=== PATIENT | female | born 1985 | race African-American/Black ===

== ENCOUNTER 2017-09-15 11:00 | Inpatient (IN) | payer MEDICAID ==
[~2017-09-15] VITALS: Ht 154.9 cm; Wt 51.7 kg
[~2017-09-15 11:00] MED LIST: CALC0.253 PO; CALC667C4 PO; HYDR-523 PO; HYDR200T35 PO; LABE100T PO; LEVE500T19 PO; LOSA100T14 PO; PRED5TAB PO; RENAVITE PO
[2017-09-15 11:57] LABS: BASOPHILS % 1.3 % (0.0-2.0); EOSINOPHILS % 0.3 % (0.0-5.0); HEMATOCRIT. 38.6 % (36.0-48.0); HEMOGLOBIN. 11.9 g/dL (12.0-16.0); LYMPHOCYTES % 33.6 % (20.0-50.0); MEAN CORPUSCULAR HEMOGLOBIN 25.4 pg (28.0-32.0); MEAN CORPUSCULAR VOLUME 81.9 fL (81.0-99.0); MEAN PLATELET VOLUME 9.9 fl (7.4-10.4); MONOCYTES % 11.2 % (2.0-8.0); NEUTROPHILS % 53.6 % (40.0-76.0); PLATELET 171 x1000/uL (130-400); RED BLOOD CELL COUNT 4.71 mill/uL (4.2-5.4); RED CELL DISTRIBUTION WIDTH 20.4 % (11.6-14.6)
[2017-09-15 12:05] LABS: CHLORIDE 95 mEq/L (98-107)
[2017-09-15 12:20] LABS: INR 1.2; PROTHROMBIN TIME 12.6 sec (9.4-11.6)
[2017-09-15 12:35] LABS: HCG SCREEN INDETERMINATE
[2017-09-15] MEDS ORDERED: POTASSIUM CHLORIDE 20MEQ TABLET SR PO ONE (12:45)
[2017-09-15] MEDS ORDERED: SODIUM CHLORIDE 0.9% 1,000 ML IV ONE (13:11)
[2017-09-15] MEDS ORDERED: ONDANSETRON HCL 4MG/2ML VIAL IV STA (13:11)
[2017-09-15] MEDS ORDERED: KCL 10MEQ/50ML PREMIX 50 ML IV ONE (13:15)
[2017-09-15] MEDS ORDERED: MAGNESIUM 2 G PREMIX 50 ML IV ONE (15:00)
[2017-09-15] MEDS ORDERED: FOLI0.8T42 PO (20:47)
[2017-09-15 20:53] VITALS: BP 100/72
[2017-09-15 21:00] VITALS: BP 100/72
[2017-09-15] MEDS: LABETALOL HCL 100MG TABLET PO SCH (22:30)
[2017-09-15] MEDS ORDERED: ONDANSETRON HCL 4MG/2ML VIAL IV PRN (22:30)
[2017-09-15] MEDS ORDERED: ACETAMINOPHEN 325MG TABLET PO PRN (22:30)
[2017-09-15] MEDS ORDERED: IPRATROPIUM/ALBUTEROL 0.5-3(2.5)MG/3ML NEB HHN PRN (22:45)
[2017-09-16 00:09] VITALS: BP 104/68
[2017-09-16 04:00] VITALS: BP 98/59
[2017-09-16 07:25] LABS: HEMATOCRIT. 30.6 % (36.0-48.0); HEMOGLOBIN. 9.2 g/dL (12.0-16.0); MEAN CORPUSCULAR HEMOGLOBIN 24.7 pg (28.0-32.0); MEAN PLATELET VOLUME 11.3 fl (7.4-10.4); PLATELET 104 x1000/uL (130-400); RED BLOOD CELL COUNT 3.73 mill/uL (4.2-5.4)
[2017-09-16 08:00] VITALS: BP 94/64
[2017-09-16] MEDS: CALCIUM ACETATE 667MG CAPSULE PO SCH ×4 (08:10→18:10)
[2017-09-16 08:16] LABS: NUCLEATED RED BLOOD CELLS 5 /100 WBC
[2017-09-16 08:17] LABS: PLATELET ESTIMATE SLIGHTLY DECREASED
[2017-09-16] MEDS: HYDROXYCHLOROQUINE SULFATE 200MG TABLET PO SCH ×2 (08:41→18:13)
[2017-09-16] MEDS: PREDNISONE 5MG TABLET PO SCH (08:41)
[2017-09-16] MEDS: FOLIC ACID/VITAMIN B COMP W-C TABLET PO SCH (08:41)
[2017-09-16] MEDS: LEVETIRACETAM 500MG TABLET PO SCH ×3 (08:41→17:00)
[2017-09-16] MEDS: LABETALOL HCL 100MG TABLET PO SCH ×2 (08:42→20:37)
[2017-09-16] MEDS: LOSARTAN POTASSIUM 100 MG TABLET PO SCH (08:42)
[2017-09-16] MEDS ORDERED: POTASSIUM CHLORIDE 20MEQ TABLET SR PO NR ×2 (10:00→21:30)
[2017-09-16 12:00] VITALS: BP 95/68
[2017-09-16 16:00] VITALS: BP 96/57
[2017-09-16] MEDS ORDERED: POTASSIUM CHLORIDE 20MEQ/PACKET PO NR (18:30)
[2017-09-16 20:00] VITALS: BP 91/63
[2017-09-16] MEDS ORDERED: KCL 20MEQ/100ML PREMIX 100 ML IV NR (20:00)
[2017-09-17] VITALS: BP 98/60
[2017-09-17 04:00] VITALS: BP 92/66
[2017-09-17 07:16] LABS: HEMATOCRIT. 30.9 % (36.0-48.0); HEMOGLOBIN. 9.6 g/dL (12.0-16.0); MEAN CORPUSCULAR HEMOGLOBIN 25.1 pg (28.0-32.0); MEAN CORPUSCULAR VOLUME 81.1 fL (81.0-99.0); MEAN PLATELET VOLUME 11.3 fl (7.4-10.4); PLATELET 87 x1000/uL (130-400); RED BLOOD CELL COUNT 3.81 mill/uL (4.2-5.4); RED CELL DISTRIBUTION WIDTH 20.4 % (11.6-14.6)
[2017-09-17 07:46] LABS: PHOSPHORUS 2.9 mg/dL (2.5-4.9)
[2017-09-17 08:00] VITALS: BP 98/71
[2017-09-17] MEDS: CALCIUM ACETATE 667MG CAPSULE PO SCH ×3 (08:10→17:12)
[2017-09-17] MEDS: LABETALOL HCL 100MG TABLET PO SCH ×2 (08:32→20:08)
[2017-09-17] MEDS: LEVETIRACETAM 500MG TABLET PO SCH ×2 (09:00→16:07)
[2017-09-17] MEDS: LOSARTAN POTASSIUM 100 MG TABLET PO SCH (09:00)
[2017-09-17] MEDS ORDERED: POTASSIUM CHLORIDE 20MEQ/PACKET PO SCH (09:00)
[2017-09-17] MEDS ORDERED: CALCITRIOL 0.25MCG CAPSULE PO SCH (09:00)
[2017-09-17] MEDS: FOLIC ACID/VITAMIN B COMP W-C TABLET PO SCH (09:22)
[2017-09-17] MEDS: POTASSIUM CHLORIDE 20MEQ TABLET SR PO SCH (09:22)
[2017-09-17] MEDS: PREDNISONE 5MG TABLET PO SCH (09:22)
[2017-09-17] MEDS: HYDROXYCHLOROQUINE SULFATE 200MG TABLET PO SCH ×2 (09:33→17:08)
[2017-09-17 12:00] VITALS: BP 99/70
[2017-09-17 14:26] LABS: NUCLEATED RED BLOOD CELLS 17 /100 WBC
[2017-09-17 14:28] LABS: PLATELET ESTIMATE DECREASED
[2017-09-17 16:00] VITALS: BP 97/62
[2017-09-17] MEDS ORDERED: ONDANSETRON HCL 4MG/2ML VIAL IV PRN (17:00)
[2017-09-17 20:00] VITALS: BP 92/66
[2017-09-18] VITALS: BP 94/65
[2017-09-18 04:00] VITALS: BP 92/56
[2017-09-18 08:00] VITALS: BP 90/56
[2017-09-18 08:39] LABS: HEMATOCRIT. 28.3 % (36.0-48.0); HEMOGLOBIN. 8.7 g/dL (12.0-16.0); MEAN CORPUSCULAR HEMOGLOBIN 24.7 pg (28.0-32.0); MEAN CORPUSCULAR VOLUME 80.3 fL (81.0-99.0); MEAN PLATELET VOLUME 10.6 fl (7.4-10.4); PLATELET 94 x1000/uL (130-400); RED BLOOD CELL COUNT 3.53 mill/uL (4.2-5.4); RED CELL DISTRIBUTION WIDTH 20.5 % (11.6-14.6)
[2017-09-18 08:52] LABS: PHOSPHORUS 2.4 mg/dL (2.5-4.9)
[2017-09-18] MEDS: PREDNISONE 5MG TABLET PO SCH (08:55)
[2017-09-18] MEDS: LEVETIRACETAM 500MG TABLET PO SCH ×2 (08:55→09:00)
[2017-09-18] MEDS: HYDROXYCHLOROQUINE SULFATE 200MG TABLET PO SCH (08:55)
[2017-09-18] MEDS: POTASSIUM CHLORIDE 20MEQ TABLET SR PO SCH (08:55)
[2017-09-18] MEDS: FOLIC ACID/VITAMIN B COMP W-C TABLET PO SCH (08:55)
[2017-09-18] MEDS: CALCIUM ACETATE 667MG CAPSULE PO SCH ×2 (08:55→13:10)
[2017-09-18] MEDS: LABETALOL HCL 100MG TABLET PO SCH (08:56)
[2017-09-18] MEDS: LOSARTAN POTASSIUM 100 MG TABLET PO SCH (08:56)
[2017-09-18] MEDS ORDERED: FOLIC ACID/VITAMIN B COMP W-C TABLET PO SCH (09:00)
[2017-09-18 12:00] VITALS: BP 97/58
[2017-09-18] MEDS ORDERED: POTASSIUM CHLORIDE 20MEQ TABLET SR PO NR (14:00)
[2017-09-18 16:00] VITALS: BP 90/57
[2017-09-18 17:30] LABS: PLATELET ESTIMATE DECREASED
[2017-09-18] MEDS ORDERED: CALCIUM CARBONATE 500MG TABLET CHEW PO SCH (18:10)
== END 2017-09-18 17:00 | disposition home or self-care (01) | DRG 720 ==
LOC: ER 11:00 → 7WST 15:58 → EDBEDREQTM 16:04 → EDBEDREQ 16:04 → ENRESERV 19:23
PROVIDERS: ADMIT Internal Medicine; ATTEND Internal Medicine
PROC: 3E1M39Z Irrigation of Peritoneal Cavity using Dialysate, Percutaneous Approach (ICD-10-PCS; principal; 2017-09-16)
DX: A41.9 Sepsis, unspecified organism (principal); E43 Unspecified severe protein-calorie malnutrition; N18.6 End stage renal disease; I12.0 Hypertensive chronic kidney disease with stage 5 chronic kidney disease or end stage renal disease; D69.6 Thrombocytopenia, unspecified; M32.9 Systemic lupus erythematosus, unspecified; E83.42 Hypomagnesemia; E87.6 Hypokalemia; G40.909 Epilepsy, unspecified, not intractable, without status epilepticus; E03.9 Hypothyroidism, unspecified; J45.909 Unspecified asthma, uncomplicated; D64.9 Anemia, unspecified; G89.4 Chronic pain syndrome; Z88.0 Allergy status to penicillin; Z79.899 Other long term (current) drug therapy; Z87.440 Personal history of urinary (tract) infections; Z99.2 Dependence on renal dialysis; Z68.21 Body mass index [BMI] 21.0-21.9, adult
CPT/HCPCS: 36415; 71045; 80048; 80053; 82270; 83735; 84100; 84145; 84484; 84702; 84703; 85025; 85610; 87015; 87045; 87070; 87205; 87427; 87449; 87493; 89050; 89055; 93005; 96365; 96375; 99285; J2405; J3475; J3480; J7030; J7050; J7512

== ENCOUNTER 2018-02-24 15:19 | Inpatient (IN) | payer MEDICAID ==
[~2018-02-24] VITALS: Ht 154.9 cm; Wt 44.9 kg
[~2018-02-24 15:19] MED LIST changes: +FOLI0.8T42 PO; -LABE100T PO; +LABE100T5 PO; -RENAVITE PO
[2018-02-24] MEDS ORDERED: SODIUM CHLORIDE 0.9% 1,000 ML IV ONE (18:33)
[2018-02-24] MEDS ORDERED: ONDANSETRON HCL 4MG/2ML INJ IV STA (18:33)
[2018-02-24] MEDS ORDERED: SODIUM CHLORIDE 0.9% 250 ML IV ONE (18:45)
[2018-02-24 19:36] LABS: CHLORIDE 94 mEq/L (98-107)
[2018-02-24 19:37] LABS: HEMATOCRIT. 47.9 % (36.0-48.0); HEMOGLOBIN. 14.7 g/dL (12.0-16.0); MEAN CORPUSCULAR HEMOGLOBIN 26.5 pg (28.0-32.0); MEAN CORPUSCULAR VOLUME 86.1 fL (81.0-99.0); MEAN PLATELET VOLUME 8.9 fl (7.4-10.4); PLATELET 290 x1000/uL (130-400); RED BLOOD CELL COUNT 5.56 mill/uL (4.2-5.4); RED CELL DISTRIBUTION WIDTH 21.7 % (11.6-14.6)
[2018-02-24] MEDS ORDERED: POTASSIUM CHLORIDE INJ 40 MEQ in DEXT 5% WATER 250 ML IV NR (20:20)
[2018-02-24 20:24] LABS: NUCLEATED RED BLOOD CELLS 4 /100 WBC; PLATELET ESTIMATE NORMAL
[2018-02-24 20:51] LABS: PHOSPHORUS 7.1 mg/dL (2.5-4.9)
[2018-02-24] MEDS ORDERED: HYDROCORTISONE SOD SUCCINATE 100 MG/2 ML VIAL IV ONE (21:00)
[2018-02-24] MEDS ORDERED: ACETAMINOPHEN 325MG TABLET PO PRN (21:15)
[2018-02-24] MEDS ORDERED: IPRATROPIUM/ALBUTEROL 0.5-3(2.5)MG/3ML NEB INH PRN (21:15)
[2018-02-24] MEDS ORDERED: NITROGLYCERIN 0.4MG TABLET SL SL PRN (21:15)
[2018-02-24] MEDS ORDERED: GUAIFENESIN 200MG/10ML SUGAR FREE UDC PO PRN (21:15)
[2018-02-24] MEDS ORDERED: DOCUSATE SODIUM 100MG CAPSULE PO PRN (21:15)
[2018-02-24] MEDS ORDERED: MAGNESIUM/ALUMINUM HYDROXIDE/SIMETHICONE 30ML UDC PO PRN (21:15)
[2018-02-24] MEDS ORDERED: DIPHENHYDRAMINE 50MG/ML VIAL IV PRN (21:15)
[2018-02-24] MEDS ORDERED: CLONIDINE 0.1MG TABLET PO PRN (21:15)
[2018-02-24 22:45] VITALS: BP 99/69
[2018-02-25] MEDS ORDERED: POTASSIUM CHLORIDE 20MEQ TABLET SR PO SCH (00:09)
[2018-02-25] MEDS ORDERED: ZOLPIDEM TARTRATE 5MG TABLET PO PRN (00:09)
[2018-02-25] MEDS: ONDANSETRON HCL 4MG/2ML INJ IV PRN ×3 (00:13→21:41)
[2018-02-25] MEDS ORDERED: NA PHOS,M-B/NA PHOS,DI-BA ENEMA 118ML PR PRN (00:51)
[2018-02-25 01:25] LABS: CREATINE KINASE MB FRACTION 1.3 ng/mL (0.5-3.6)
[2018-02-25] MEDS ORDERED: MAGNESIUM 1 G PREMIX 100 ML IV SCH (02:00)
[2018-02-25 04:00] VITALS: BP 96/58
[2018-02-25 06:51] LABS: CREATINE KINASE MB FRACTION 1.2 ng/mL (0.5-3.6)
[2018-02-25] MEDS ORDERED: EPOE40002 IJ (07:51)
[2018-02-25 08:00] VITALS: BP 90/58
[2018-02-25] MEDS: LEVETIRACETAM 500MG TABLET PO SCH ×2 (09:00→20:38)
[2018-02-25] MEDS: PANTOPRAZOLE SODIUM 40 MG/VIAL IV SCH (09:15)
[2018-02-25] MEDS: SUCRALFATE 1 G/10 ML UDC PO SCH ×4 (09:15→20:38)
[2018-02-25] MEDS: METOCLOPRAMIDE 10MG/10 ML UDC PO SCH ×3 (09:15→18:04)
[2018-02-25] MEDS: POTASSIUM CHLORIDE 20MEQ TABLET SR PO SCH (09:16)
[2018-02-25] MEDS: HYDROXYCHLOROQUINE SULFATE 200MG TABLET PO SCH (09:16)
[2018-02-25] MEDS: PREDNISONE 5MG TABLET PO SCH (09:16)
[2018-02-25] MEDS: SEVELAMER CARBONATE 800 MG TABLET PO SCH ×3 (09:16→18:05)
[2018-02-25 11:31] LABS: HEMATOCRIT. 49.2 % (36.0-48.0); HEMOGLOBIN. 14.8 g/dL (12.0-16.0); MEAN CORPUSCULAR VOLUME 89.4 fL (81.0-99.0); MEAN PLATELET VOLUME 9.1 fl (7.4-10.4); PLATELET 249 x1000/uL (130-400); RED CELL DISTRIBUTION WIDTH 21.6 % (11.6-14.6)
[2018-02-25 11:44] LABS: CHLORIDE 99 mEq/L (98-107)
[2018-02-25 12:00] VITALS: BP 106/72
[2018-02-25 16:00] VITALS: BP 97/69
[2018-02-25 17:30] LABS: NUCLEATED RED BLOOD CELLS 3 /100 WBC; PLATELET ESTIMATE NORMAL
[2018-02-25 19:15] LABS: HCG SCREEN NEGATIVE
[2018-02-25 20:00] VITALS: BP 92/64
[2018-02-26] VITALS: BP 103/63
[2018-02-26 04:00] VITALS: BP 105/61
[2018-02-26 07:22] LABS: HEMATOCRIT. 38.8 % (36.0-48.0); HEMOGLOBIN. 12.1 g/dL (12.0-16.0); MEAN CORPUSCULAR HEMOGLOBIN 26.8 pg (28.0-32.0); MEAN CORPUSCULAR VOLUME 85.9 fL (81.0-99.0); MEAN PLATELET VOLUME 9.1 fl (7.4-10.4); PLATELET 220 x1000/uL (130-400); RED BLOOD CELL COUNT 4.52 mill/uL (4.2-5.4); RED CELL DISTRIBUTION WIDTH 21.1 % (11.6-14.6)
[2018-02-26 07:59] VITALS: BP 92/63
[2018-02-26 08:18] LABS: PHOSPHORUS 5.6 mg/dL (2.5-4.9)
[2018-02-26] MEDS: SEVELAMER CARBONATE 800 MG TABLET PO SCH ×3 (08:27→16:49)
[2018-02-26] MEDS: LEVETIRACETAM 500MG TABLET PO SCH ×2 (08:28→20:51)
[2018-02-26] MEDS: HYDROXYCHLOROQUINE SULFATE 200MG TABLET PO SCH (08:28)
[2018-02-26] MEDS: ALLOPURINOL 100 MG TABLET PO SCH (08:28)
[2018-02-26] MEDS: PANTOPRAZOLE SODIUM 40 MG/VIAL IV SCH (08:29)
[2018-02-26] MEDS: SUCRALFATE 1 G/10 ML UDC PO SCH ×4 (08:29→20:50)
[2018-02-26] MEDS: POTASSIUM CHLORIDE 20MEQ TABLET SR PO SCH ×2 (08:29→16:39)
[2018-02-26] MEDS: METOCLOPRAMIDE 10MG/10 ML UDC PO SCH ×3 (08:29→16:49)
[2018-02-26] MEDS: CHOLECALCIFEROL (D3) 1000 UNIT TABLET PO SCH (08:29)
[2018-02-26] MEDS: PREDNISONE 5MG TABLET PO SCH (08:29)
[2018-02-26] MEDS: ONDANSETRON HCL 4MG/2ML INJ IV PRN ×2 (08:39→16:40)
[2018-02-26] MEDS ORDERED: KCL 20MEQ/100ML PREMIX 100 ML IV SCH (11:30)
[2018-02-26 11:34] VITALS: BP 90/62
[2018-02-26 15:39] VITALS: BP 89/60
[2018-02-26 17:45] LABS: NUCLEATED RED BLOOD CELLS 8 /100 WBC
[2018-02-26 17:46] LABS: PLATELET ESTIMATE NORMAL
[2018-02-26 20:00] VITALS: BP 94/61
[2018-02-27] VITALS: BP 98/66
[2018-02-27 04:00] VITALS: BP 105/73
[2018-02-27 08:00] VITALS: BP 96/66
[2018-02-27] MEDS: SEVELAMER CARBONATE 800 MG TABLET PO SCH ×2 (08:48→13:07)
[2018-02-27] MEDS: LEVETIRACETAM 500MG TABLET PO SCH (08:49)
[2018-02-27] MEDS: METOCLOPRAMIDE 10MG/10 ML UDC PO SCH ×2 (08:49→13:06)
[2018-02-27] MEDS: SUCRALFATE 1 G/10 ML UDC PO SCH ×2 (08:49→13:06)
[2018-02-27] MEDS: PREDNISONE 5MG TABLET PO SCH (08:49)
[2018-02-27] MEDS: HYDROXYCHLOROQUINE SULFATE 200MG TABLET PO SCH (08:49)
[2018-02-27] MEDS: ALLOPURINOL 100 MG TABLET PO SCH (08:49)
[2018-02-27] MEDS: POTASSIUM CHLORIDE 20MEQ TABLET SR PO SCH (08:50)
[2018-02-27] MEDS: CHOLECALCIFEROL (D3) 1000 UNIT TABLET PO SCH (08:50)
[2018-02-27] MEDS ORDERED: FAMOTIDINE 20MG TABLET PO SCH (09:00)
[2018-02-27 12:06] VITALS: BP 96/66
[2018-02-27 12:11] VITALS: BP 98/59
[2018-02-27 12:13] VITALS: BP 98/59
== END 2018-02-27 15:13 | disposition home or self-care (01) | DRG 241 ==
LOC: ER 19:44 → 7WST 20:55 → EDBEDREQ 21:03 → EDBEDREQTM 21:03 → ENRESERV 21:24
PROVIDERS: ADMIT Internal Medicine; ATTEND Internal Medicine
PROC: 3E1M39Z Irrigation of Peritoneal Cavity using Dialysate, Percutaneous Approach (ICD-10-PCS; principal; 2018-02-25)
DX: K29.70 Gastritis, unspecified, without bleeding (principal); E43 Unspecified severe protein-calorie malnutrition; M32.9 Systemic lupus erythematosus, unspecified; E11.43 Type 2 diabetes mellitus with diabetic autonomic (poly)neuropathy; K31.84 Gastroparesis; E83.42 Hypomagnesemia; E83.39 Other disorders of phosphorus metabolism; I12.0 Hypertensive chronic kidney disease with stage 5 chronic kidney disease or end stage renal disease; K27.9 Peptic ulcer, site unspecified, unspecified as acute or chronic, without hemorrhage or perforation; N18.6 End stage renal disease; E83.51 Hypocalcemia; E87.6 Hypokalemia; E03.9 Hypothyroidism, unspecified; E86.0 Dehydration; G40.909 Epilepsy, unspecified, not intractable, without status epilepticus; D72.829 Elevated white blood cell count, unspecified; J45.909 Unspecified asthma, uncomplicated; Z53.8 Procedure and treatment not carried out for other reasons; Z86.72 Personal history of thrombophlebitis; Z99.2 Dependence on renal dialysis; Z87.440 Personal history of urinary (tract) infections; Z88.0 Allergy status to penicillin; Z79.899 Other long term (current) drug therapy; Z79.52 Long term (current) use of systemic steroids; Z68.1 Body mass index [BMI] 19.9 or less, adult
CPT/HCPCS: 36415; 71045; 80048; 80053; 80061; 82550; 82553; 83036; 83690; 83735; 84100; 84484; 84703; 85025; 93970; 96361; 96365; 96375; 99285; C1893; C9113; J1720; J2405; J3475; J3480; J7030; J7060; J7512; J8597

== ENCOUNTER 2018-03-06 17:07 | Inpatient (IN) | payer MEDICAID ==
[~2018-03-06] VITALS: Ht 154.9 cm; Wt 49.9 kg
[~2018-03-06 17:07] MED LIST changes: +EPOE40002 IJ
[2018-03-06] MEDS ORDERED: ONDANSETRON HCL 4MG/2ML INJ IV STA (17:58)
[2018-03-06] MEDS ORDERED: SODIUM CHLORIDE 0.9% 1,000 ML IV ONE (17:58)
[2018-03-06 18:44] LABS: BASOPHILS % 0.6 % (0.0-2.0); EOSINOPHILS % 0.2 % (0.0-5.0); HEMATOCRIT. 46.7 % (36.0-48.0); HEMOGLOBIN. 14.1 g/dL (12.0-16.0); MEAN CORPUSCULAR HEMOGLOBIN 25.8 pg (28.0-32.0); MEAN CORPUSCULAR VOLUME 85.4 fL (81.0-99.0); MEAN PLATELET VOLUME 9.5 fl (7.4-10.4); MONOCYTES % 7.7 % (2.0-8.0); NEUTROPHILS % 67.5 % (40.0-76.0); PLATELET 264 x1000/uL (130-400); RED BLOOD CELL COUNT 5.46 mill/uL (4.2-5.4); RED CELL DISTRIBUTION WIDTH 21.6 % (11.6-14.6)
[2018-03-06 18:49] LABS: CHLORIDE 97 mEq/L (98-107); INR 1.3; PROTHROMBIN TIME 12.7 sec (9.1-11.1)
[2018-03-06] MEDS ORDERED: KCL 20MEQ/100ML PREMIX 100 ML IV ONE (19:15)
[2018-03-06] MEDS ORDERED: KETOROLAC 30MG/ML VIAL IV ONE (20:15)
[2018-03-07 00:28] VITALS: BP 105/75
[2018-03-07] MEDS: MORPHINE SULFATE 4 MG/ML CPJ (NOT FOR IM USE) IV PRN ×3 (02:04→11:52)
[2018-03-07 04:00] VITALS: BP 96/67
[2018-03-07] MEDS: ONDANSETRON HCL 4MG/2ML INJ IV PRN ×3 (04:55→21:10)
[2018-03-07 06:22] LABS: HEMATOCRIT. 42.8 % (36.0-48.0); HEMOGLOBIN. 13.2 g/dL (12.0-16.0); MEAN CORPUSCULAR HEMOGLOBIN 26.2 pg (28.0-32.0); MEAN CORPUSCULAR VOLUME 85.1 fL (81.0-99.0); MEAN PLATELET VOLUME 9.2 fl (7.4-10.4); PLATELET 277 x1000/uL (130-400); RED BLOOD CELL COUNT 5.03 mill/uL (4.2-5.4); RED CELL DISTRIBUTION WIDTH 21.2 % (11.6-14.6)
[2018-03-07 06:49] LABS: CHLORIDE 98 mEq/L (98-107)
[2018-03-07] MEDS ORDERED: HYDR200T35 MT (07:40)
[2018-03-07] MEDS ORDERED: CHOL200074 MT (07:40)
[2018-03-07] MEDS ORDERED: ALLO100T MT (07:40)
[2018-03-07] MEDS ORDERED: CALC500T6 MT (07:40)
[2018-03-07] MEDS ORDERED: VITA1CAP MT (07:41)
[2018-03-07 08:00] VITALS: BP 94/69
[2018-03-07] MEDS ORDERED: VANCOMYCIN 1 G PREMIX 200 ML IV SCH (10:00)
[2018-03-07] MEDS ORDERED: COLCHICINE 0.6MG TABLET PO NR (11:00)
[2018-03-07] MEDS: PREDNISONE 5MG TABLET PO SCH (11:50)
[2018-03-07] MEDS: HYDROXYCHLOROQUINE SULFATE 200MG TABLET PO SCH (11:51)
[2018-03-07 11:53] VITALS: BP 123/97
[2018-03-07 12:02] LABS: NUCLEATED RED BLOOD CELLS 2 /100 WBC; PLATELET ESTIMATE NORMAL
[2018-03-07] MEDS: LEVOFLOXACIN 250MG PREMIX 50 ML IV SCH (13:09)
[2018-03-07] MEDS: HYDROMORPHONE HCL/PF 2MG/ML CPJ IV PRN ×3 (13:09→22:17)
[2018-03-07] MEDS: POTASSIUM CHLORIDE INJ 40 MEQ in SODIUM CHLORIDE 0.9% 1,000 ML IV SCH (13:09)
[2018-03-07 16:00] VITALS: BP 109/67
[2018-03-07] MEDS: PANTOPRAZOLE SODIUM 40 MG/VIAL IV SCH (17:00)
[2018-03-07 20:00] VITALS: BP 106/75
[2018-03-08] VITALS: BP 115/91
[2018-03-08] MEDS: HYDROMORPHONE HCL/PF 2MG/ML CPJ IV PRN ×5 (03:48→21:16)
[2018-03-08 04:00] VITALS: BP 114/91
[2018-03-08] MEDS: ONDANSETRON HCL 4MG/2ML INJ IV PRN (05:33)
[2018-03-08 07:30] VITALS: BP 118/86
[2018-03-08 07:38] LABS: HEMATOCRIT. 44.4 % (36.0-48.0); HEMOGLOBIN. 13.5 g/dL (12.0-16.0); MEAN CORPUSCULAR HEMOGLOBIN 26.4 pg (28.0-32.0); MEAN CORPUSCULAR VOLUME 86.7 fL (81.0-99.0); MEAN PLATELET VOLUME 9.2 fl (7.4-10.4); PLATELET 229 x1000/uL (130-400); RED BLOOD CELL COUNT 5.12 mill/uL (4.2-5.4); RED CELL DISTRIBUTION WIDTH 21.3 % (11.6-14.6)
[2018-03-08 08:30] LABS: PHOSPHORUS 6.2 mg/dL (2.5-4.9)
[2018-03-08] MEDS: HYDROXYCHLOROQUINE SULFATE 200MG TABLET PO SCH (08:57)
[2018-03-08] MEDS: POTASSIUM CHLORIDE INJ 40 MEQ in SODIUM CHLORIDE 0.9% 1,000 ML IV SCH (08:57)
[2018-03-08] MEDS: PANTOPRAZOLE SODIUM 40 MG/VIAL IV SCH (08:57)
[2018-03-08] MEDS: PREDNISONE 5MG TABLET PO SCH (08:58)
[2018-03-08] MEDS: FOLIC ACID/VITAMIN B COMP W-C TABLET PO SCH (08:58)
[2018-03-08 09:52] LABS: NUCLEATED RED BLOOD CELLS 5 /100 WBC; PLATELET ESTIMATE NORMAL
[2018-03-08] MEDS: LEVOFLOXACIN 250MG PREMIX 50 ML IV SCH (10:31)
[2018-03-08 12:54] VITALS: BP 125/88
[2018-03-08] MEDS: CALCIUM ACETATE 667MG CAPSULE PO SCH ×2 (13:19→17:18)
[2018-03-08] MEDS ORDERED: HYDROMORPHONE HCL/PF 2MG/ML CPJ IV PRN (16:15)
[2018-03-08 16:42] VITALS: BP 118/77
[2018-03-08 18:15] LABS: HCG SCREEN NEGATIVE
[2018-03-08 20:00] VITALS: BP 101/78
[2018-03-09] VITALS: BP 99/65
[2018-03-09] MEDS: HYDROMORPHONE HCL/PF 2MG/ML CPJ IV PRN ×5 (02:29→21:57)
[2018-03-09 04:00] VITALS: BP 159/99
[2018-03-09] MEDS: METHYLPREDNISOLONE SOD SUCC 40 MG/ML VIAL IV SCH ×2 (05:21→17:10)
[2018-03-09] MEDS ORDERED: LIDOCAINE HCL 1% 20ML VIAL (Pyxis) INJ ONE (07:56)
[2018-03-09 08:52] LABS: HEMATOCRIT. 40.7 % (36.0-48.0); HEMOGLOBIN. 12.5 g/dL (12.0-16.0); MEAN CORPUSCULAR HEMOGLOBIN 26.4 pg (28.0-32.0); MEAN CORPUSCULAR VOLUME 86.1 fL (81.0-99.0); MEAN PLATELET VOLUME 9.4 fl (7.4-10.4); PLATELET 216 x1000/uL (130-400); RED BLOOD CELL COUNT 4.73 mill/uL (4.2-5.4); RED CELL DISTRIBUTION WIDTH 21.3 % (11.6-14.6)
[2018-03-09] MEDS ORDERED: HEPARIN 100 UNITS/1 ML VIAL IVF PRN (09:00)
[2018-03-09] MEDS: HYDROXYCHLOROQUINE SULFATE 200MG TABLET PO SCH (10:03)
[2018-03-09] MEDS: FOLIC ACID/VITAMIN B COMP W-C TABLET PO SCH (10:03)
[2018-03-09] MEDS: CALCIUM ACETATE 667MG CAPSULE PO SCH ×3 (10:03→17:18)
[2018-03-09] MEDS: PANTOPRAZOLE SODIUM 40 MG/VIAL IV SCH (10:04)
[2018-03-09 10:41] VITALS: BP 2/93
[2018-03-09 12:00] VITALS: BP 122/93
[2018-03-09] MEDS ORDERED: IOHEXOL-350 100 ML BOTTLE ONE (13:27)
[2018-03-09] MEDS: POTASSIUM CHLORIDE INJ 40 MEQ in SODIUM CHLORIDE 0.9% 1,000 ML IV SCH (17:10)
[2018-03-09 20:00] VITALS: BP 99/72
[2018-03-09] MEDS: ONDANSETRON HCL 4MG/2ML INJ IV PRN (21:57)
[2018-03-10] VITALS: BP 134/94
[2018-03-10] MEDS: HYDROMORPHONE HCL/PF 2MG/ML CPJ IV PRN ×4 (02:49→19:11)
[2018-03-10 04:00] VITALS: BP 115/84
[2018-03-10] MEDS: POTASSIUM CHLORIDE INJ 40 MEQ in SODIUM CHLORIDE 0.9% 1,000 ML IV SCH (05:35)
[2018-03-10] MEDS: METHYLPREDNISOLONE SOD SUCC 40 MG/ML VIAL IV SCH ×2 (05:35→17:16)
[2018-03-10 08:00] VITALS: BP 106/73
[2018-03-10 08:18] LABS: HEMATOCRIT. 31.1 % (36.0-48.0); HEMOGLOBIN. 9.6 g/dL (12.0-16.0); MEAN CORPUSCULAR HEMOGLOBIN 26.2 pg (28.0-32.0); MEAN CORPUSCULAR VOLUME 84.8 fL (81.0-99.0); MEAN PLATELET VOLUME 9.2 fl (7.4-10.4); PLATELET 137 x1000/uL (130-400); RED BLOOD CELL COUNT 3.66 mill/uL (4.2-5.4); RED CELL DISTRIBUTION WIDTH 21.3 % (11.6-14.6)
[2018-03-10] MEDS ORDERED: LEVOFLOXACIN 250MG PREMIX 50 ML IV SCH (09:00)
[2018-03-10] MEDS: PANTOPRAZOLE SODIUM 40 MG/VIAL IV SCH (09:05)
[2018-03-10] MEDS: HYDROXYCHLOROQUINE SULFATE 200MG TABLET PO SCH (09:06)
[2018-03-10] MEDS: FOLIC ACID/VITAMIN B COMP W-C TABLET PO SCH (09:06)
[2018-03-10] MEDS: CALCIUM ACETATE 667MG CAPSULE PO SCH ×3 (09:06→17:16)
[2018-03-10] MEDS: HYDROCORTISONE 2.5% CREAM 20GM TOP SCH ×2 (09:18→20:52)
[2018-03-10] MEDS: TRIAMCINOLONE ACETONIDE 0.1% CREAM 15GM TOP SCH ×2 (09:19→20:52)
[2018-03-10] MEDS ORDERED: VISCOUS LIDOCAINE 2% 15 ML UDC MM PRN (09:30)
[2018-03-10] MEDS ORDERED: MAGNESIUM/ALUMINUM HYDROXIDE/SIMETHICONE 30ML UDC PO PRN (09:30)
[2018-03-10 12:00] VITALS: BP 127/90
[2018-03-10] MEDS ORDERED: VANCOMYCIN 1 G PREMIX 200 ML IV NR (12:00)
[2018-03-10] MEDS: LIDOCAINE HCL 20 MG/ML 100ML BOTTLE MM PRN ×2 (12:35→21:24)
[2018-03-10] MEDS: SODIUM CHLORIDE 0.9% 1,000 ML IV SCH (12:38)
[2018-03-10 13:02] LABS: NUCLEATED RED BLOOD CELLS 21 /100 WBC
[2018-03-10 13:07] LABS: PLATELET ESTIMATE NORMAL
[2018-03-10 20:00] VITALS: BP 94/75
[2018-03-10] MEDS ORDERED: EPOETIN ALFA 10000UNITS/ML VIAL SUBCUT NR (21:00)
[2018-03-10] MEDS: DIPHENHYDRAMINE 50MG/ML VIAL IV PRN (22:42)
[2018-03-11] VITALS (7 sets, daily range): BP systolic 97–176; BP diastolic 67–90
[2018-03-11] MEDS: SODIUM CHLORIDE 0.9% 1,000 ML IV SCH ×2 (04:30→15:25)
[2018-03-11] MEDS: METHYLPREDNISOLONE SOD SUCC 40 MG/ML VIAL IV SCH ×2 (05:11→18:26)
[2018-03-11 07:39] LABS: HEMATOCRIT. 30.8 % (36.0-48.0); HEMOGLOBIN. 9.4 g/dL (12.0-16.0); MEAN CORPUSCULAR HEMOGLOBIN 25.8 pg (28.0-32.0); MEAN CORPUSCULAR VOLUME 84.7 fL (81.0-99.0); MEAN PLATELET VOLUME 9.3 fl (7.4-10.4); PLATELET 103 x1000/uL (130-400); RED BLOOD CELL COUNT 3.64 mill/uL (4.2-5.4); RED CELL DISTRIBUTION WIDTH 22.1 % (11.6-14.6)
[2018-03-11] MEDS: FAMOTIDINE 20MG TABLET PO SCH (09:27)
[2018-03-11] MEDS: FOLIC ACID/VITAMIN B COMP W-C TABLET PO SCH (09:27)
[2018-03-11] MEDS: HYDROCORTISONE 2.5% CREAM 20GM TOP SCH ×2 (09:28→21:00)
[2018-03-11] MEDS: CALCIUM ACETATE 667MG CAPSULE PO SCH ×3 (09:28→16:45)
[2018-03-11] MEDS: TRIAMCINOLONE ACETONIDE 0.1% CREAM 15GM TOP SCH ×2 (09:29→21:00)
[2018-03-11] MEDS: HYDROXYCHLOROQUINE SULFATE 200MG TABLET PO SCH (09:36)
[2018-03-11] MEDS: LIDOCAINE HCL 20 MG/ML 100ML BOTTLE MM PRN ×2 (09:36→19:12)
[2018-03-11] MEDS: HYDROMORPHONE HCL/PF 2MG/ML CPJ IV PRN ×3 (10:35→19:09)
[2018-03-11] MEDS: DIPHENHYDRAMINE 50MG/ML VIAL IV PRN ×2 (13:13→22:28)
[2018-03-11 14:18] LABS: NUCLEATED RED BLOOD CELLS 18 /100 WBC; PLATELET ESTIMATE NORMAL
[2018-03-11] MEDS ORDERED: BENZONATATE 100MG CAPSULE PO PRN (15:45)
[2018-03-11 18:00] LABS: NUCLEATED RED BLOOD CELLS 33 /100 WBC; PLATELET ESTIMATE DECREASED
[2018-03-11] MEDS ORDERED: FUROSEMIDE 100MG/10ML VIAL IVP NR (18:30)
[2018-03-12] VITALS (7 sets, daily range): BP systolic 97–104; BP diastolic 61–79
[2018-03-12] MEDS: METHYLPREDNISOLONE SOD SUCC 40 MG/ML VIAL IV SCH ×2 (06:49→17:33)
[2018-03-12] MEDS: CALCIUM ACETATE 667MG CAPSULE PO SCH ×3 (06:49→17:04)
[2018-03-12] MEDS: HYDROMORPHONE HCL/PF 2MG/ML CPJ IV PRN (08:12)
[2018-03-12] MEDS: FOLIC ACID/VITAMIN B COMP W-C TABLET PO SCH (09:08)
[2018-03-12] MEDS: HYDROXYCHLOROQUINE SULFATE 200MG TABLET PO SCH (09:08)
[2018-03-12] MEDS: FAMOTIDINE 20MG TABLET PO SCH (09:08)
[2018-03-12 09:09] LABS: COMPLEMENT C3 48 mg/dL (82-167); DRVVT LA 54.6 sec (0.0-47.0); DRVVT MIX LA 41.6 sec (0.0-47.0); GLOMERULAR BASEMENT MEMB AB 4 units (0-20); LUPUS ANTICOAG INTERPRETATION Comment: (.); PTT-LA 35.3 sec (0.0-51.9)
[2018-03-12] MEDS: HYDROCORTISONE 2.5% CREAM 20GM TOP SCH (09:09)
[2018-03-12] MEDS: TRIAMCINOLONE ACETONIDE 0.1% CREAM 15GM TOP SCH (09:09)
[2018-03-12] MEDS: DIPHENHYDRAMINE 50MG/ML VIAL IV PRN (11:01)
[2018-03-12 15:10] LABS: ANTI-MYELOPEROXIDASE AB < 9.0 U/mL (0.0-9.0); ANTI-PROTEINASE 3 ABS < 3.5 U/mL (0.0-3.5)
[2018-03-12 19:09] LABS: ANA IFA Positive (.); ANTI-DNA DOUBLE STRANDED QUANT 8 IU/mL (0-9); RNP ANTIBODY > 8.0 AI (0.0-0.9); SMITH ANTIBODY > 8.0 AI (0.0-0.9)
[2018-03-13 10:07] LABS: ATYPICAL P-ANCA <1:20 titer (Neg:<1:20); CYTOPLASMIC C-ANCA <1:20 titer (Neg:<1:20); PERINUCLEAR P-ANCA <1:20 titer (Neg:<1:20)
[2018-03-13 13:10] LABS: ANTI-CARDIOLIPIN AB IGA < 9 APL U/mL (0-11); ANTI-CARDIOLIPIN AB IGG < 9 GPL U/mL (0-14); ANTI-CARDIOLIPIN AB IGM < 9 MPL U/mL (0-12)
[2018-03-14 15:06] LABS: G6PD QUANTITATIVE 469 (146-376)
== END 2018-03-12 18:54 | disposition home or self-care (01) | DRG 720 ==
LOC: ER 17:07 → 8WST 21:09 → EDBEDREQ 21:15 → EDBEDREQTM 21:15 → ENRESERV 23:14
PROVIDERS: ADMIT Internal Medicine; ATTEND Internal Medicine
PROC: 02HV33Z Insertion of Infusion Device into Superior Vena Cava, Percutaneous Approach (ICD-10-PCS; principal; 2018-03-09)
PROC: B5181ZA Fluoroscopy of Superior Vena Cava using Low Osmolar Contrast, Guidance (ICD-10-PCS; 2018-03-09)
PROC: B548ZZA Ultrasonography of Superior Vena Cava, Guidance (ICD-10-PCS; 2018-03-09)
DX: A41.9 Sepsis, unspecified organism (principal); J96.00 Acute respiratory failure, unspecified whether with hypoxia or hypercapnia; E43 Unspecified severe protein-calorie malnutrition; I13.2 Hypertensive heart and chronic kidney disease with heart failure and with stage 5 chronic kidney disease, or end stage renal disease; J84.9 Interstitial pulmonary disease, unspecified; K92.0 Hematemesis; M32.9 Systemic lupus erythematosus, unspecified; K29.70 Gastritis, unspecified, without bleeding; N18.6 End stage renal disease; K76.0 Fatty (change of) liver, not elsewhere classified; E87.6 Hypokalemia; E83.42 Hypomagnesemia; E83.39 Other disorders of phosphorus metabolism; D72.810 Lymphocytopenia; D72.829 Elevated white blood cell count, unspecified; E03.9 Hypothyroidism, unspecified; E83.51 Hypocalcemia; G40.909 Epilepsy, unspecified, not intractable, without status epilepticus; I50.30 Unspecified diastolic (congestive) heart failure; J45.909 Unspecified asthma, uncomplicated; K12.1 Other forms of stomatitis; K42.9 Umbilical hernia without obstruction or gangrene; K12.0 Recurrent oral aphthae; K44.9 Diaphragmatic hernia without obstruction or gangrene; I70.209 Unspecified atherosclerosis of native arteries of extremities, unspecified extremity; K86.89 Other specified diseases of pancreas; M13.0 Polyarthritis, unspecified; M87.9 Osteonecrosis, unspecified; M87.852 Other osteonecrosis, left femur; M87.851 Other osteonecrosis, right femur; Z99.2 Dependence on renal dialysis; Z79.52 Long term (current) use of systemic steroids; Z68.20 Body mass index [BMI] 20.0-20.9, adult; Z88.0 Allergy status to penicillin
CPT/HCPCS: 36415; 36569; 71045; 75635; 76937; 77001; 80048; 80053; 80202; 82955; 83520; 83735; 84100; 84134; 84145; 84550; 84703; 85025; 85041; 85379; 85610; 85613; 85651; 85732; 86140; 86147; 86160; 86225; 86235; 86256; 86592; 86780; 87040; 87070; 87205; 89050; 93005; 93923; 96361; 96374; 97162; 99285; A6261; C1725; C1893; C9113; J0885; J1170; J1200; J1642; J1885; J1940; J1956; J2270; J2405; J2920; J3370; J3480; J3490; J7030; J7040; J7512; Q9967

== ENCOUNTER 2018-04-02 03:22 | Inpatient (IN) | payer MEDICAID ==
[~2018-04-02] VITALS: Ht 152.4 cm; Wt 50.3 kg
[~2018-04-02 03:22] MED LIST changes: +ALLO100T MT; +CALC500T6 MT; +CHOL200074 MT; -FOLI0.8T42 PO; +HYDR200T35 MT; -LABE100T5 PO; -LEVE500T19 PO; -LOSA100T14 PO; +VITA1CAP MT
[2018-04-02] MEDS ORDERED: DEXTROSE 50% WATER 50ML SYRINGE IV ONE ×2 (03:30→03:37)
[2018-04-02] MEDS ORDERED: DEXT 10% WATER 1,000 ML IV ONE (03:30)
[2018-04-02] MEDS ORDERED: ONDANSETRON HCL 4MG/2ML INJ IV STA (04:05)
[2018-04-02] MEDS ORDERED: MORPHINE SULFATE 4 MG/ML CPJ (NOT FOR IM USE) IV STA (04:05)
[2018-04-02] MEDS ORDERED: MEROPENEM 1,000 MG in SODIUM CHLORIDE 0.9% 100 ML IV SCH (04:15)
[2018-04-02] MEDS ORDERED: VANCOMYCIN 1 G PREMIX 200 ML IV ONE (04:15)
[2018-04-02 05:02] LABS: HEMATOCRIT. 34.3 % (36.0-48.0); HEMOGLOBIN. 10.1 g/dL (12.0-16.0); MEAN CORPUSCULAR HEMOGLOBIN 26.7 pg (28.0-32.0); MEAN CORPUSCULAR VOLUME 90.7 fL (81.0-99.0); MEAN PLATELET VOLUME 10.7 fl (7.4-10.4); PLATELET 364 x1000/uL (130-400); RED BLOOD CELL COUNT 3.78 mill/uL (4.2-5.4); RED CELL DISTRIBUTION WIDTH 22.1 % (11.6-14.6)
[2018-04-02 05:08] LABS: HCG SCREEN NEGATIVE
[2018-04-02 05:11] LABS: INR 1.5; PROTHROMBIN TIME 14.9 sec (9.1-11.1)
[2018-04-02 05:12] LABS: CHLORIDE 90 mEq/L (98-107)
[2018-04-02 06:21] LABS: PLATELET ESTIMATE NORMAL
[2018-04-02] MEDS ORDERED: ACETAMINOPHEN 325MG TABLET PO PRN (08:15)
[2018-04-02] MEDS ORDERED: ACETAMINOPHEN 650MG/20.3ML UDC GT PRN (08:15)
[2018-04-02] MEDS ORDERED: HYDROCODONE/ACETAMINOPHEN 5/325MG TABLET PO PRN (08:15)
[2018-04-02] MEDS ORDERED: ACETAMINOPHEN 650MG SUPP PR PRN (08:15)
[2018-04-02] MEDS: HYDROCODONE/ACETAMINOPHEN 10/325MG TABLET PO PRN ×2 (10:46→20:57)
[2018-04-02] MEDS ORDERED: DEXTROSE 50% WATER 50ML SYRINGE IV SCH (15:00)
[2018-04-02 15:13] LABS: CREATINE KINASE MB FRACTION 14.3 ng/mL (0.5-3.6)
[2018-04-02] MEDS ORDERED: SODIUM CHLORIDE 0.9% 500 ML IV ONE (17:15)
[2018-04-02] MEDS ORDERED: MORPHINE SULFATE 4 MG/ML CPJ (NOT FOR IM USE) IV PRN (17:45)
[2018-04-02 18:46] LABS: CHLORIDE 83 mEq/L (98-107)
[2018-04-02] MEDS ORDERED: NOREPINEPHRINE 4 MG in DEXT 5% WATER 246 ML IV ONE ×2 (22:00→22:15)
[2018-04-02 23:48] LABS: HEMATOCRIT 33.1 % (36.0-48.0); HEMOGLOBIN 10.1 g/dL (12.0-16.0); MEAN CORPUSCULAR HEMOGLOBIN 26.9 pg (28.0-32.0); MEAN CORPUSCULAR VOLUME 88.4 fL (81.0-99.0); PLATELET 283 x1000/uL (130-400); RED BLOOD CELL COUNT 3.74 mill/uL (4.2-5.4); RED CELL DISTRIBUTION WIDTH 20.8 % (11.6-14.6)
[2018-04-03] VITALS (77 sets, daily range): BP systolic 57–197; BP diastolic 23–112
[2018-04-03 00:18] LABS: CREATINE KINASE MB FRACTION 15.4 ng/mL (0.5-3.6)
[2018-04-03] MEDS: ONDANSETRON HCL 4MG/2ML INJ IV PRN ×3 (01:10→17:59)
[2018-04-03 06:06] LABS: HEMATOCRIT. 34.6 % (36.0-48.0); HEMOGLOBIN. 10.4 g/dL (12.0-16.0); MEAN CORPUSCULAR HEMOGLOBIN 26.9 pg (28.0-32.0); MEAN CORPUSCULAR VOLUME 89.9 fL (81.0-99.0); MEAN PLATELET VOLUME 10.2 fl (7.4-10.4); PLATELET 273 x1000/uL (130-400); RED BLOOD CELL COUNT 3.84 mill/uL (4.2-5.4)
[2018-04-03 06:22] LABS: CHLORIDE 83 mEq/L (98-107)
[2018-04-03 06:32] LABS: HDL CHOLESTEROL 10 mg/dL (40-59); LDL CHOLESTEROL 32 mg/dL (5-100); T4 FREE 1.46 ng/dL (0.76-1.46)
[2018-04-03 06:36] LABS: PHOSPHORUS 8.8 mg/dL (2.5-4.9)
[2018-04-03] MEDS: CYANOCOBALAMIN 1000MCG TABLET PO SCH (07:00)
[2018-04-03] MEDS ORDERED: MEROPENEM 500 MG in SODIUM CHLORIDE 0.9% 50 ML IV SCH (07:30)
[2018-04-03] MEDS ORDERED: NOREPINEPHRINE 16 MG in DEXT 5% WATER 234 ML IV PRN (08:00)
[2018-04-03 09:05] LABS: NUCLEATED RED BLOOD CELLS 5 /100 WBC; PLATELET ESTIMATE NORMAL
[2018-04-03 09:26] LABS: INR 1.8; PROTHROMBIN TIME 17.6 sec (9.1-11.1)
[2018-04-03] MEDS: MORPHINE SULFATE 4 MG/ML CPJ (NOT FOR IM USE) IV PRN ×2 (10:05→14:53)
[2018-04-03] MEDS: MEROPENEM 500 MG in SODIUM CHLORIDE 0.9% 50 ML IV SCH (10:05)
[2018-04-03] MEDS: SODIUM CHL 0.9% + KCL 20MEQ/L 1,000 ML IV SCH (10:22)
[2018-04-03] MEDS ORDERED: POTASSIUM CHLORIDE INJ 40 MEQ in DEXT 5% WATER 250 ML IV SCH (11:30)
[2018-04-03] MEDS: PHENYLEPHRINE 40 MG in DEXT 5% WATER 246 ML IV PRN ×2 (12:28→17:59)
[2018-04-03] MEDS ORDERED: BACITRACIN ZINC 15GM TUBE TOP ONE (16:19)
[2018-04-03] MEDS ORDERED: BUPIVACAINE HCL/PF 0.5% (5MG/ML) 10ML ONE (16:20)
[2018-04-03] MEDS ORDERED: NORMAL SALINE 0.9% 10 ML SYR ONE ×2 (16:20→19:17)
[2018-04-03] MEDS ORDERED: BACITRACIN 50,000 UNITS/VIAL ONE ×2 (16:21→19:17)
[2018-04-03] MEDS ORDERED: ALBUMIN HUMAN 12.5G/250ML (5%) IV ONE (18:21)
[2018-04-03] MEDS ORDERED: MIDAZOLAM HCL 2 MG/2 ML VIAL ONE (18:33)
[2018-04-03] MEDS ORDERED: FENTANYL CITRATE/PF 50MCG/ML 2ML VIAL ONE (18:33)
[2018-04-03] MEDS ORDERED: ROCURONIUM BROMIDE 10MG/ML VIAL 5ML IV ONE (18:38)
[2018-04-03] MEDS ORDERED: PROPOFOL 10MG/ML 100ML 100 ML IV PRN (21:41)
[2018-04-03 22:00] LABS: BG BASE EXCESS -9.2 mmol/L (-2.0-2.0); BG CARBOXYHEMOGLOBIN 0.7 % (0.5-1.5); BG DEOXYHEMOGLOBIN 0.3 % (0.0-5.0); BG FRACTION INSPIRED OXYGEN 100; BG HCO3 ACT 16.1 mmol/L (22.0-26.0); BG METHEMOGLOBIN 0.9 % (0.0-1.5); BG OXYGEN SATURATION 99.7 % (92.0-98.5); BG OXYHEMOGLOBIN 98.1 % (94.0-97.0); BG PCO2 31.6 mmHg (35.0-45.0); BG PH 7.324 (7.350-7.450); BG PO2 418.2 mmHg (75.0-100.0); BG SAMPLE SITE PA LINE; BG TIDAL VOLUME(mL) 400 mL; BG TOTAL HEMOGLOBIN 5.3 g/dL (12.0-18.0); BG VENT MODE VENT - A/C; BG VENT RATE 10 set
[2018-04-04] VITALS (57 sets, daily range): BP systolic 91–143; BP diastolic 45–94
[2018-04-04 00:15] LABS: BASOPHILS % 0.3 % (0.0-2.0); EOSINOPHILS % 0.1 % (0.0-5.0); MEAN PLATELET VOLUME 9.7 fl (7.4-10.4)
[2018-04-04 00:34] LABS: LYMPHOCYTES % 7.9 % (20.0-50.0); MEAN CORPUSCULAR HEMOGLOBIN 26.8 pg (28.0-32.0); MEAN CORPUSCULAR VOLUME 90.9 fL (81.0-99.0); MONOCYTES % 7.6 % (2.0-8.0); NEUTROPHILS % 84.1 % (40.0-76.0); PLATELET 130 x1000/uL (130-400); RED BLOOD CELL COUNT 1.84 mill/uL (4.2-5.4); RED CELL DISTRIBUTION WIDTH 20.5 % (11.6-14.6)
[2018-04-04 00:37] LABS: HEMATOCRIT. 16.8 % (36.0-48.0); HEMOGLOBIN. 4.9 g/dL (12.0-16.0)
[2018-04-04 01:43] LABS: MEAN CORPUSCULAR HEMOGLOBIN 26.7 pg (28.0-32.0); MEAN CORPUSCULAR VOLUME 89.4 fL (81.0-99.0); PLATELET 126 x1000/uL (130-400); RED BLOOD CELL COUNT 1.78 mill/uL (4.2-5.4); RED CELL DISTRIBUTION WIDTH 20.2 % (11.6-14.6)
[2018-04-04 01:53] LABS: HEMATOCRIT. 15.9 % (36.0-48.0); HEMOGLOBIN. 4.8 g/dL (12.0-16.0)
[2018-04-04 03:09] LABS: PLATELET ESTIMATE SLIGHTLY DECREASED
[2018-04-04] MEDS: SODIUM CHL 0.9% + KCL 20MEQ/L 1,000 ML IV SCH ×2 (04:18→13:16)
[2018-04-04] MEDS: PHENYLEPHRINE 40 MG in DEXT 5% WATER 246 ML IV PRN ×2 (06:29→22:53)
[2018-04-04 08:12] LABS: BASOPHILS % 0.3 % (0.0-2.0); EOSINOPHILS % 0.1 % (0.0-5.0); HEMATOCRIT. 27.4 % (36.0-48.0); HEMOGLOBIN. 8.8 g/dL (12.0-16.0); LYMPHOCYTES % 12.4 % (20.0-50.0); MEAN CORPUSCULAR HEMOGLOBIN 28.9 pg (28.0-32.0); MEAN CORPUSCULAR VOLUME 89.7 fL (81.0-99.0); MEAN PLATELET VOLUME 10.2 fl (7.4-10.4); NEUTROPHILS % 79.2 % (40.0-76.0); PLATELET 115 x1000/uL (130-400); RED BLOOD CELL COUNT 3.05 mill/uL (4.2-5.4); RED CELL DISTRIBUTION WIDTH 16.1 % (11.6-14.6)
[2018-04-04 08:29] LABS: INR 1.4; PROTHROMBIN TIME 14.2 sec (9.1-11.1)
[2018-04-04] MEDS: IPRATROPIUM/ALBUTEROL 0.5-3(2.5)MG/3ML NEB HHN SCH ×3 (08:45→21:20)
[2018-04-04 09:20] LABS: BG BASE EXCESS 0.5 mmol/L (-2.0-2.0); BG CARBOXYHEMOGLOBIN 0.2 % (0.5-1.5); BG FRACTION INSPIRED OXYGEN 40; BG HCO3 ACT 21.2 mmol/L (22.0-26.0); BG METHEMOGLOBIN 0.3 % (0.0-1.5); BG OXYHEMOGLOBIN 98.5 % (94.0-97.0); BG PCO2 22.3 mmHg (35.0-45.0); BG PH 7.595 (7.350-7.450); BG PO2 153.2 mmHg (75.0-100.0); BG SAMPLE SITE RIGHT RADIAL; BG TIDAL VOLUME(mL) 450 mL; BG TOTAL HEMOGLOBIN 9.9 g/dL (12.0-18.0); BG VENT MODE VENT - A/C; BG VENT RATE 14 set
[2018-04-04] MEDS: FOLIC ACID/VITAMIN B COMP W-C TABLET PO SCH (10:07)
[2018-04-04] MEDS: MIDODRINE HCL 2.5MG TABLET PO SCH ×3 (10:08→17:10)
[2018-04-04] MEDS: HYDROXYCHLOROQUINE SULFATE 200MG TABLET PO SCH ×2 (10:08→17:10)
[2018-04-04] MEDS: ALLOPURINOL 100 MG TABLET PO SCH (10:08)
[2018-04-04] MEDS: PREDNISONE 5MG TABLET PO SCH (10:08)
[2018-04-04] MEDS: CALCITRIOL 0.25MCG CAPSULE PO SCH (10:08)
[2018-04-04] MEDS: CHOLECALCIFEROL (D3) 1000 UNIT TABLET PO SCH (10:09)
[2018-04-04] MEDS: MEROPENEM 500 MG in SODIUM CHLORIDE 0.9% 50 ML IV SCH (11:41)
[2018-04-04] MEDS: MORPHINE SULFATE 4 MG/ML CPJ (NOT FOR IM USE) IV PRN (11:53)
[2018-04-04] MEDS ORDERED: POTASSIUM CHLORIDE INJ 40 MEQ in DEXT 5% WATER 500 ML IV NR (12:30)
[2018-04-04] MEDS: HYDROMORPHONE HCL/PF 2MG/ML CPJ IV PRN ×2 (13:14→22:51)
[2018-04-04 19:15] LABS: HEMATOCRIT. 32.6 % (36.0-48.0); HEMOGLOBIN. 10.8 g/dL (12.0-16.0); MEAN CORPUSCULAR HEMOGLOBIN 30.1 pg (28.0-32.0); MEAN CORPUSCULAR VOLUME 90.8 fL (81.0-99.0); MEAN PLATELET VOLUME 10.2 fl (7.4-10.4); PLATELET 86 x1000/uL (130-400); RED BLOOD CELL COUNT 3.59 mill/uL (4.2-5.4); RED CELL DISTRIBUTION WIDTH 15.6 % (11.6-14.6)
[2018-04-04 20:44] LABS: NUCLEATED RED BLOOD CELLS 2 /100 WBC; PLATELET ESTIMATE DECREASED
[2018-04-04] MEDS ORDERED: EPOETIN ALFA 4000UNITS/ML VIAL SUBCUT SCH (21:00)
[2018-04-05] VITALS (65 sets, daily range): BP systolic 43–164; BP diastolic 20–131
[2018-04-05] MEDS ORDERED: PHENYLEPHRINE 40 MG in DEXT 5% WATER 500 ML IV PRN (01:00)
[2018-04-05] MEDS: CYANOCOBALAMIN 1000MCG TABLET PO SCH ×2 (02:00→06:59)
[2018-04-05] MEDS: NOREPINEPHRINE 32 MG in DEXT 5% WATER 468 ML IV PRN ×3 (02:53→20:41)
[2018-04-05] MEDS: SODIUM CHL 0.9% + KCL 20MEQ/L 1,000 ML IV SCH ×2 (03:13→22:08)
[2018-04-05 06:49] LABS: PHOSPHORUS 3.8 mg/dL (2.5-4.9)
[2018-04-05] MEDS: VASOPRESSIN 10 UNIT in SODIUM CHLORIDE 0.9% 99.5 ML IV SCH ×5 (06:55→22:41)
[2018-04-05 08:12] LABS: BG BASE EXCESS -15.4 mmol/L (-2.0-2.0); BG CARBOXYHEMOGLOBIN 0.3 % (0.5-1.5); BG DEOXYHEMOGLOBIN 0.9 % (0.0-5.0); BG HCO3 ACT 9.9 mmol/L (22.0-26.0); BG METHEMOGLOBIN 0.8 % (0.0-1.5); BG OXYGEN SATURATION 99.1 % (92.0-98.5); BG PCO2 21.3 mmHg (35.0-45.0); BG PH 7.283 (7.350-7.450); BG PO2 504.4 mmHg (75.0-100.0); BG SAMPLE SITE RIGHT RADIAL; BG TIDAL VOLUME(mL) 450 mL; BG TOTAL HEMOGLOBIN 6.1 g/dL (12.0-18.0); BG VENT MODE VENT - A/C; BG VENT RATE 14 set
[2018-04-05] MEDS: IPRATROPIUM/ALBUTEROL 0.5-3(2.5)MG/3ML NEB HHN SCH ×3 (08:50→21:16)
[2018-04-05] MEDS: HYDROXYCHLOROQUINE SULFATE 200MG TABLET PO SCH ×2 (09:00→17:00)
[2018-04-05] MEDS: CALCITRIOL 0.25MCG CAPSULE PO SCH (09:00)
[2018-04-05] MEDS: ALLOPURINOL 100 MG TABLET PO SCH (09:00)
[2018-04-05] MEDS: PREDNISONE 5MG TABLET PO SCH (09:00)
[2018-04-05] MEDS: CHOLECALCIFEROL (D3) 1000 UNIT TABLET PO SCH (09:00)
[2018-04-05] MEDS: FOLIC ACID/VITAMIN B COMP W-C TABLET PO SCH (09:00)
[2018-04-05] MEDS: MIDODRINE HCL 2.5MG TABLET PO SCH ×3 (09:00→17:00)
[2018-04-05] MEDS ORDERED: MAGNESIUM SULFATE 3 GM in DEXT 5% WATER 94 ML IV SCH (09:00)
[2018-04-05 10:05] LABS: MEAN CORPUSCULAR HEMOGLOBIN 30.2 pg (28.0-32.0); MEAN CORPUSCULAR VOLUME 99.1 fL (81.0-99.0); MEAN PLATELET VOLUME 10.4 fl (7.4-10.4); RED BLOOD CELL COUNT 1.72 mill/uL (4.2-5.4); RED CELL DISTRIBUTION WIDTH 16.4 % (11.6-14.6)
[2018-04-05 11:00] LABS: HEMATOCRIT. 17.1 % (36.0-48.0)
[2018-04-05] MEDS ORDERED: ALBUMIN HUMAN 25GM/100ML (25%) IV SCH (11:00)
[2018-04-05 11:01] LABS: HEMOGLOBIN. 5.2 g/dL (12.0-16.0)
[2018-04-05] MEDS ORDERED: SODIUM BICARBONATE 8.4% 1 MEQ/ML 50ML SYR IV NR (11:40)
[2018-04-05] MEDS: MEROPENEM 500 MG in SODIUM CHLORIDE 0.9% 50 ML IV SCH ×2 (12:00→22:00)
[2018-04-05 12:40] LABS: NUCLEATED RED BLOOD CELLS 4 /100 WBC
[2018-04-05 12:41] LABS: PLATELET ESTIMATE MARKEDLY DECREASED
[2018-04-05 12:42] LABS: PLATELET 43 x1000/uL (130-400)
[2018-04-05] MEDS: PHENYLEPHRINE 40 MG in DEXT 5% WATER 496 ML IV PRN ×2 (13:02→20:16)
[2018-04-05] MEDS ORDERED: MEROPENEM 500 MG in SODIUM CHLORIDE 0.9% 50 ML IV SCH (22:00)
[2018-04-06] VITALS (62 sets, daily range): BP systolic 54–237; BP diastolic 23–112
[2018-04-06] MEDS: IPRATROPIUM/ALBUTEROL 0.5-3(2.5)MG/3ML NEB HHN SCH ×2 (02:39→09:01)
[2018-04-06] MEDS: VASOPRESSIN 10 UNIT in SODIUM CHLORIDE 0.9% 99.5 ML IV SCH ×2 (03:37→17:01)
[2018-04-06] MEDS: PHENYLEPHRINE 40 MG in DEXT 5% WATER 496 ML IV PRN (03:42)
[2018-04-06 06:33] LABS: HEMATOCRIT. 26.3 % (36.0-48.0); HEMOGLOBIN. 7.6 g/dL (12.0-16.0); MEAN CORPUSCULAR HEMOGLOBIN 30.1 pg (28.0-32.0); MEAN CORPUSCULAR VOLUME 104.4 fL (81.0-99.0); MEAN PLATELET VOLUME 9.3 fl (7.4-10.4); RED BLOOD CELL COUNT 2.52 mill/uL (4.2-5.4); RED CELL DISTRIBUTION WIDTH 16.4 % (11.6-14.6)
[2018-04-06] MEDS: CYANOCOBALAMIN 1000MCG TABLET PO SCH (07:00)
[2018-04-06 07:24] LABS: PHOSPHORUS 5.6 mg/dL (2.5-4.9)
[2018-04-06] MEDS ORDERED: DEXTROSE 50% WATER 50ML SYRINGE IV ONE (08:08)
[2018-04-06] MEDS: FOLIC ACID/VITAMIN B COMP W-C TABLET PO SCH (09:00)
[2018-04-06] MEDS ORDERED: DEXT 5%/0.45% NACL 1000ML 1,000 ML IV SCH (09:00)
[2018-04-06] MEDS: CALCITRIOL 0.25MCG CAPSULE PO SCH (09:00)
[2018-04-06] MEDS: HYDROXYCHLOROQUINE SULFATE 200MG TABLET PO SCH (09:00)
[2018-04-06] MEDS: ALLOPURINOL 100 MG TABLET PO SCH (09:00)
[2018-04-06] MEDS: MIDODRINE HCL 2.5MG TABLET PO SCH ×2 (09:00→13:00)
[2018-04-06] MEDS ORDERED: SODIUM BICARBONATE 8.4% 1 MEQ/ML 50ML SYR IV NR ×2 (09:00→16:00)
[2018-04-06] MEDS: PREDNISONE 5MG TABLET PO SCH (09:00)
[2018-04-06] MEDS: CHOLECALCIFEROL (D3) 1000 UNIT TABLET PO SCH (09:00)
[2018-04-06] MEDS ORDERED: SODIUM BICARBONATE 8.4% 1 MEQ/ML 50ML SYR IV ONE (09:11)
[2018-04-06 09:26] LABS: BG BASE EXCESS -11.3 mmol/L (-2.0-2.0); BG CARBOXYHEMOGLOBIN 0.3 % (0.5-1.5); BG DEOXYHEMOGLOBIN 1.7 % (0.0-5.0); BG FRACTION INSPIRED OXYGEN 40; BG HCO3 ACT 11.9 mmol/L (22.0-26.0); BG METHEMOGLOBIN 0.9 % (0.0-1.5); BG OXYGEN SATURATION 98.3 % (92.0-98.5); BG OXYHEMOGLOBIN 97.1 % (94.0-97.0); BG PCO2 17.9 mmHg (35.0-45.0); BG PEEP (cmH2O) 0 cmH2O; BG PH 7.439 (7.350-7.450); BG PO2 142.5 mmHg (75.0-100.0); BG SAMPLE SITE LEFT RADIAL; BG TIDAL VOLUME(mL) 450 mL; BG VENT MODE VENT - A/C; BG VENT RATE 20 set
[2018-04-06] MEDS ORDERED: DEXTROSE 50% WATER 50ML SYRINGE IV NR (09:30)
[2018-04-06] MEDS ORDERED: CALCIUM CHLORIDE 1,000 MG in DEXT 5% WATER 90 ML IV NR (09:30)
[2018-04-06] MEDS ORDERED: VANCOMYCIN 750 MG PREMIX 150 ML IV NR (10:00)
[2018-04-06] MEDS ORDERED: RACEPINEPHRINE 2.25% 0.5ML NEB VIAL HHN PRN (10:15)
[2018-04-06 10:54] LABS: NUCLEATED RED BLOOD CELLS 3 /100 WBC
[2018-04-06 10:55] LABS: PLATELET ESTIMATE MARKEDLY DECREASED
[2018-04-06 10:56] LABS: PLATELET 23 x1000/uL (130-400)
[2018-04-06] MEDS ORDERED: DEXT 10% WATER 1,000 ML IV ONE (11:00)
[2018-04-06] MEDS ORDERED: DEXT 10% WATER 1,000 ML IV SCH (11:00)
[2018-04-06] MEDS: DEXTROSE 50% WATER 50ML SYRINGE IV PRN ×2 (11:02→16:51)
[2018-04-06] MEDS ORDERED: LIDOCAINE HCL 1% 20ML VIAL (Pyxis) INJ ONE (11:51)
[2018-04-06] MEDS ORDERED: SODIUM BICARBONATE 4% (2.4MEQ) 5ML VIAL IV ONE (11:52)
[2018-04-06] MEDS: MORPHINE SULFATE 4 MG/ML CPJ (NOT FOR IM USE) IV PRN (12:11)
[2018-04-06 13:16] LABS: D-DIMER 3.27 mg/L FEU (<0.50); INR 2.6
[2018-04-06] MEDS ORDERED: AMIKACIN SULFATE 250 MG in SODIUM CHLORIDE 0.9% 100 ML IV NR (14:00)
[2018-04-06] MEDS ORDERED: HYDROCORTISONE SOD SUCCINATE 100 MG/2 ML VIAL IV SCH (14:00)
[2018-04-06] MEDS ORDERED: SODIUM CHLORIDE 0.9% 250 ML IV NR (16:00)
== END 2018-04-06 18:10 | disposition expired | DRG 710 ==
LOC: ER 03:22 → MICUSO 04:59 → EDBEDREQSVC 05:05 → EDBEDREQTM 05:05 → EDBEDREQ 05:05 → CANRESERV 15:35 → ENRESERV 15:35 → EDBEDREQTM 16:56 → EDBEDREQSVC 16:56 → ENRESERV 21:42 → EDBEDREQTM 23:18 → EDBEDREQSVC 23:18 → ENRESERV 23:21
PROVIDERS: ADMIT Internal Medicine; ATTEND Internal Medicine
PROC: 05HM33Z Insertion of Infusion Device into Right Internal Jugular Vein, Percutaneous Approach (ICD-10-PCS; principal; 2018-04-02)
PROC: 0Y6H0Z1 Detachment at Right Lower Leg, High, Open Approach (ICD-10-PCS; 2018-04-03)
PROC: 0Y6J0Z1 Detachment at Left Lower Leg, High, Open Approach (ICD-10-PCS; 2018-04-03)
PROC: 5A1945Z Respiratory Ventilation, 24-96 Consecutive Hours (ICD-10-PCS; 2018-04-03)
PROC: 30233L1 Transfusion of Nonautologous Fresh Plasma into Peripheral Vein, Percutaneous Approach (ICD-10-PCS; 2018-04-03)
PROC: 30233K1 Transfusion of Nonautologous Frozen Plasma into Peripheral Vein, Percutaneous Approach (ICD-10-PCS; 2018-04-03)
PROC: 0BH17EZ Insertion of Endotracheal Airway into Trachea, Via Natural or Artificial Opening (ICD-10-PCS; 2018-04-03)
PROC: 3E1M39Z Irrigation of Peritoneal Cavity using Dialysate, Percutaneous Approach (ICD-10-PCS; 2018-04-03)
PROC: 30233N1 Transfusion of Nonautologous Red Blood Cells into Peripheral Vein, Percutaneous Approach (ICD-10-PCS; 2018-04-04)
PROC: 3E1M39Z Irrigation of Peritoneal Cavity using Dialysate, Percutaneous Approach (ICD-10-PCS; 2018-04-04)
PROC: 06HM33Z Insertion of Infusion Device into Right Femoral Vein, Percutaneous Approach (ICD-10-PCS; 2018-04-06)
PROC: B54BZZA Ultrasonography of Right Lower Extremity Veins, Guidance (ICD-10-PCS; 2018-04-06)
PROC: 3E1M39Z Irrigation of Peritoneal Cavity using Dialysate, Percutaneous Approach (ICD-10-PCS; 2018-04-06)
DX: A41.9 Sepsis, unspecified organism (principal); I21.4 Non-ST elevation (NSTEMI) myocardial infarction; J96.00 Acute respiratory failure, unspecified whether with hypoxia or hypercapnia; R65.21 Severe sepsis with septic shock; E43 Unspecified severe protein-calorie malnutrition; E87.3 Alkalosis; I70.263 Atherosclerosis of native arteries of extremities with gangrene, bilateral legs; D68.9 Coagulation defect, unspecified; G93.40 Encephalopathy, unspecified; Z66 Do not resuscitate; E83.39 Other disorders of phosphorus metabolism; N18.6 End stage renal disease; I13.2 Hypertensive heart and chronic kidney disease with heart failure and with stage 5 chronic kidney disease, or end stage renal disease; D64.9 Anemia, unspecified; D69.6 Thrombocytopenia, unspecified; E03.9 Hypothyroidism, unspecified; E16.2 Hypoglycemia, unspecified; E87.5 Hyperkalemia; E87.6 Hypokalemia; G40.909 Epilepsy, unspecified, not intractable, without status epilepticus; I50.32 Chronic diastolic (congestive) heart failure; J45.909 Unspecified asthma, uncomplicated; K44.9 Diaphragmatic hernia without obstruction or gangrene; K76.0 Fatty (change of) liver, not elsewhere classified; M32.9 Systemic lupus erythematosus, unspecified; N17.9 Acute kidney failure, unspecified; Z87.440 Personal history of urinary (tract) infections; Z88.0 Allergy status to penicillin; Z99.2 Dependence on renal dialysis; Z79.899 Other long term (current) drug therapy; Z79.52 Long term (current) use of systemic steroids; Z68.21 Body mass index [BMI] 21.0-21.9, adult
CPT/HCPCS: 36415; 36430; 36556; 36600; 71045; 73620; 73721; 76937; 80048; 80061; 80076; 80202; 82375; 82550; 82553; 82805; 82962; 83036; 83605; 83735; 83970; 84100; 84132; 84145; 84439; 84443; 84478; 84481; 84484; 84590; 84703; 85027; 85379; 86850; 86900; 86920; 86927; 87186; 88307; 88311; 93005; 93306; 93923; 93970; 94002; 94003; 94640; 96365; 96375; 99291; A4216; C1752; J0278; J0885; J1170; J1642; J1720; J2185; J2250; J2270; J2370; J2405; J3010; J3370; J3475; J3480; J3490; J7030; J7040; J7050; J7060; J7512; J7620; P9016; P9017; P9041; P9047